=== PATIENT | male | born 1945 | race Caucasian/White ===

== ENCOUNTER 2017-09-06 19:21 | Emergency (ER) | payer OTHER ==
[~2017-09-06] VITALS: Ht 167.6 cm; Wt 75.3 kg
[2017-09-06] MEDS ORDERED: ZETIA10 MG PO (19:49)
[2017-09-06] MEDS ORDERED: VERAPAMIL ER180 MG PO (19:50)
[2017-09-07] MEDS ORDERED: CIPRO500 MG PO (03:46)
[2017-09-07] MEDS ORDERED: LEVSIN/SL0.125 MG SL (03:46)
[2017-09-07] MEDS ORDERED: FLAGYL500MG PO (03:46)
== END 2017-09-07 03:52 | disposition home or self-care (01) ==
LOC: ER 19:21
DX: K62.5 Hemorrhage of anus and rectum (principal); K52.89 Other specified noninfective gastroenteritis and colitis